=== PATIENT | male | born 1975 | race Caucasian/White ===

== ENCOUNTER 2023-10-10 13:51 | Emergency (ER) | payer SELFPAY ==
[~2023-10-10] VITALS: Ht 172.7 cm; Wt 77.1 kg
[2023-10-10 13:55] VITALS: BP 122/84; PULSE 74; RESP 17; TEMP 97.5; O2SAT 100
[2023-10-10] MEDS: LORazepam 1 MG TAB PO ONE (14:24)
[2023-10-10 14:55] LABS: BASOPHILS % (AUTO) 0.6 % (0.0-2.0); EOSINOPHILS # (AUTO) 0.1 K/uL (0-0.4); EOSINOPHILS % (AUTO) 1.7 % (0.0-4.0); LYMPHOCYTES # (AUTO) 1.6 K/uL (2.0-11.5); MEAN CORPUSCULAR HEMOGLOBIN 31 pg (27-31); MEAN CORPUSCULAR HGB CONC 34 g/dL (33-37); MONOCYTES # (AUTO) 0.4 K/uL (0.8-1.0); MONOCYTES % (AUTO) 8.4 % (1.7-9.3); NEUTROPHILS # (AUTO) 2.6 K/uL (1.8-7.7); RED CELL DISTRIBUTION WIDTH 13.3 % (11.6-13.7)
[2023-10-10] MEDS: NACL 0.9% 1,000 ML IV ONE (15:15)
[2023-10-10 15:16] LABS: PARTIAL THROMBOPLASTIN TIME 19.8 secs (22-35.6); PROTHROMBIN TIME 10.5 secs (10.8-13.4)
[2023-10-10 15:19] LABS: ANION GAP 13.4 (8-16); CALCIUM 9.1 mg/dL (8.5-10.1); CARBON DIOXIDE 25.4 mmol/L (21-32); CREATININE 0.9 mg/dL (0.6-1.3); POTASSIUM 3.8 mmol/L (3.5-5.1)
[2023-10-10 15:26] LABS: ALANINE AMINOTRANSFERASE 53 U/L (12-78); ALBUMIN 3.7 g/dL (3.4-5.0); ALKALINE PHOSPHATASE 82 U/L (50-136); ASPARTATE AMINOTRANSFERASE 32 U/L (15-37); BILIRUBIN,DIRECT 0.1 mg/dL (0.0-0.3); TOTAL BILIRUBIN 0.7 mg/dL (0.0-1.0); TOTAL PROTEIN, SERUM 7.4 g/dL (6.4-8.2)
[2023-10-10 15:31] LABS: APPEARANCE,URINE CLEAR (CLEAR); BILIRUBIN,URINE NEGATIVE (NEGATIVE); BLOOD, URINE TRACE-L (NEGATIVE); COLOR,URINE YELLOW (YELLOW); LEUKOCYTE ESTERASE ,URINE NEGATIVE (NEGATIVE); NITRITE, URINE NEGATIVE (NEGATIVE); PROTEIN,URINE NEGATIVE (NEGATIVE); UGLUCOSE NEGATIVE (NEGATIVE); UROBILINOGEN,URINE 0.2 EU/dL (0.2 - 1)
[2023-10-10 15:35] LABS: HEMOGLOBIN 15.6 g/dL (12.0-18.0); RED BLOOD CELL COUNT(AUTO) 5.01 MIL/uL (4.20-6.10); WHITE BLOOD COUNT (AUTO) 6.8 K/uL (4.8-10.8)
[2023-10-10 15:36] LABS: HEMATOCRIT 46.1 % (36-52)
[2023-10-10 15:38] LABS: PLATELET COUNT (AUTO) 185 K/uL (140-450)
[2023-10-10 15:39] LABS: NEUTROPHILS % (AUTO) 63.4 % (42.2-75.2)
[2023-10-10 15:40] LABS: LYMPHOCYTES % (AUTO) 25.7 % (20.5-51.1)
[2023-10-10 15:44] LABS: BACTERIA,URINE FEW /HPF (None Seen); RBC,URINE 0-5 /HPF (0-5); SQUAMOUS EPITHELIAL CELL,UR 0-3 (FEW) /LPF (0-3 (FEW)); WBC,URINE 0-5 /HPF (0-5)
[2023-10-10] MEDS ORDERED: LORA-476 PO (16:10)
[2023-10-10 17:25] VITALS: BP 130/82; PULSE 69; RESP 16; TEMP 97.5; O2SAT 97
== END 2023-10-10 17:25 | disposition home or self-care (01) ==
LOC: MED 13:51
DX: F41.9 Anxiety disorder, unspecified (principal); R06.02 Shortness of breath; Z79.899 Other long term (current) drug therapy; Z88.0 Allergy status to penicillin
CPT/HCPCS: 36415; 71045; 80048; 80076; 81001; 82948; 83880; 84484; 85025; 85610; 85730; 93005; 96360; 99285; J7030; Q0092